=== PATIENT | female | born 1980 | race African-American/Black ===

== ENCOUNTER 2019-04-23 19:02 | Emergency (ER) | payer BC ==
[~2019-04-23] VITALS: Ht 172.7 cm; Wt 72.6 kg
[2019-04-23 19:27] VITALS: BP 142/94
--- NOTE | 2019-04-23 21:01 | NUR ---
CALLED TO RM, NO ANSWER.
--- NOTE | 2019-04-23 21:16 | NUR ---
2ND CALL, NO ANSWER.
--- NOTE | 2019-04-23 21:24 | NUR ---
3rd call to rm, no answer. LWBS.
== END 2019-04-23 21:57 | disposition left against medical advice (07) ==
LOC: ER 19:02
DX: Z53.21 Procedure and treatment not carried out due to patient leaving prior to being seen by health care provider (principal); R07.89 Other chest pain; J45.909 Unspecified asthma, uncomplicated

== ENCOUNTER 2020-06-20 00:16 | Emergency (ER) | payer BC ==
[~2020-06-20] VITALS: Ht 172.7 cm; Wt 120.2 kg
[2020-06-20 00:16] VITALS: BP 164/93
--- NOTE | 2020-06-20 00:20 | NUR ---
PT CAME TO THE ED C/O RLE DISCOMFORT X 9 DAYS. -SWELLING -REDNESS. PT STATES "I AM SCARED I MAY HAVE A BLOOD CLOT D/T SMOKING AND CONTROL PILLS". PT ADMITS TO BE ANXIOUS AT THIS TIME. PT AAOX4, VSS,RESPIRATIONS EVEN AND UNLABORED ON RA W/ NAD NOTED. PT CONNECTED TO THE FORGE HAND AND POX.
--- NOTE | 2020-06-20 01:20 | NUR ---
ULTRASOUND AT BEDSIDE IN PROGRESS
--- NOTE | 2020-06-20 02:17 | NUR ---
Patient discharged to home in stable condition. Written and verbal after care instructions given. Patient verbalizes understanding of instruction.pt. ambulatory with a steady gait
== END 2020-06-20 02:17 | disposition home or self-care (01) ==
LOC: ER 00:19
DX: M79.661 Pain in right lower leg (principal); J45.909 Unspecified asthma, uncomplicated; F17.210 Nicotine dependence, cigarettes, uncomplicated; Z60.2 Problems related to living alone
CPT/HCPCS: 93971-TC